=== PATIENT | female | born 1965 | race Caucasian/White ===

== ENCOUNTER 2024-12-19 19:36 | Emergency (ER) | payer MEDICAID ==
[~2024-12-19] VITALS: Ht 160 cm; Wt 72.7 kg
[2024-12-19 19:53] VITALS: TEMP 97.9
[2024-12-19 20:05] VITALS: BP 155/76; PULSE 82; RESP 16; O2SAT 98
[2024-12-19 22:05] LABS: GLUCOMETER DEV NAME(LOC) ERT.6; GLUCOSE,POINT OF CARE 114 MG/DL (70-110)
[2024-12-19 22:29] LABS: BASOPHILS % (AUTO) 0.4 % (0.0-2.0); EOSINOPHILS % (AUTO) 3.3 % (1.0-6.0); HEMATOCRIT 35.3 % (36-46); HEMOGLOBIN 11.6 g/dL (12.0-16.0); LYMPHOCYTES # (AUTO) 4.3 K/uL (1.0-4.8); LYMPHOCYTES % (AUTO) 43.1 % (22.0-44.0); MEAN CORPUSCULAR HEMOGLOBIN 29.8 pg (26.0-34.0); MEAN CORPUSCULAR HGB CONC 32.8 G/dL (31.0-37.0); MEAN CORPUSCULAR VOLUME 91 fL (80-100); MONOCYTES # (AUTO) 0.7 K/uL (0.1-1.0); NEUTROPHILS # (AUTO) 4.6 K/uL (1.8-7.7); NEUTROPHILS % (AUTO) 46.2 % (40.0-70.0); PLATELET COUNT (AUTO) 205 K/uL (150-450); RED BLOOD CELL COUNT(AUTO) 3.89 MIL/uL (4.00-5.20); RED CELL DISTRIBUTION WIDTH 14.9 % (11.5-14.5); WHITE BLOOD COUNT (AUTO) 10.1 K/uL (4.5-11.0)
[2024-12-19 22:34] LABS: ANION GAP 11 mmol/L (8-16); CALCIUM, TOTAL 9.3 mg/dL (8.8-10.5); CARBON DIOXIDE 28 mmol/L (22-29); CHLORIDE 103 mmol/L (98-107); CREATININE 4.51 mg/dL (0.60-1.30); GLOMERULAR FILTR. RATE CALC 10 mL/min (>60); GLUCOSE,RANDOM 113 mg/dL (70-110); POTASSIUM 4.9 mmol/L (3.5-5.1); SODIUM SERUM 142 mmol/L (136-145); UREA NITROGEN, BLOOD 55 mg/dL (7-18)
[2024-12-19 22:45] LABS: LIPASE 66 U/L (16-77); TROPONIN I-HIGH SENSITIVITY 10 ng/L (<51)
[2024-12-19] MEDS: MAG HYDROX/ALUMINUM HYD/SIMETH 30 ML SUSPENSION UDCUP PO ONE (23:09)
[2024-12-19] MEDS: DICYCLOMINE HCL 10 MG CAPSULE PO ONE (23:09)
[2024-12-19] MEDS: POLYETHYLENE GLYCOL 3350 17 GM PACKET PO ONE (23:10)
[2024-12-20] MEDS ORDERED: POLY17PO47 PO (00:50)
[2024-12-20] MEDS ORDERED: SENN-376 PO (00:50)
== END 2024-12-20 00:56 | disposition home or self-care (01) ==
LOC: EMS 19:36
DX: K59.00 Constipation, unspecified (principal); I12.0 Hypertensive chronic kidney disease with stage 5 chronic kidney disease or end stage renal disease; E11.22 Type 2 diabetes mellitus with diabetic chronic kidney disease; N18.6 End stage renal disease
CPT/HCPCS: 74018; 80048; 82962; 83690; 84484; 85025; 99284; 36415-L1; 36415-TC